=== PATIENT | female | born 2000 | race Caucasian/White ===

== ENCOUNTER 2022-01-22 19:45 | Emergency (ER) | payer OTHER, SELFPAY ==
[2022-01-22 19:48] VITALS: BP 125/93; PULSE 100; RESP 16; TEMP 36.7; O2SAT 100
--- NOTE | 2022-01-22 20:13 | PC.NURSE ---
Pt and family seen exiting ED with steady gait, in no obvious distress.
--- NOTE | 2022-01-22 20:22 | PC.NURSE ---
Does not want to wait to be seen. Not present in dept.
== END 2022-01-22 20:37 | disposition left against medical advice (07) ==
LOC: ANHED 20:36
PROVIDERS: PCP Pediatrics Adolescent Medicine
DX: R51.9 Headache, unspecified (principal)
CPT/HCPCS: 99199

== ENCOUNTER 2022-09-14 11:14 | Emergency (ER) | payer OTHER, SELFPAY ==
[2022-09-14 11:17] VITALS: BP 116/73; PULSE 111; RESP 16; TEMP 37.3; O2SAT 100
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
[2022-09-14] MEDS: ACETAMINOPHEN 325 MG TABLET 650 MG PO (12:05)
[2022-09-14 12:06] LABS: Appearance Urine Clear (Clear); Bilirubin Urine Negative (Negative); Blood Urine Negative (Negative); Color Urine Yellow (Yellow); Glucose Urine UA Negative (Negative); Ketones Urine Negative (Negative); Leukocyte Esterase Ur Negative LEU/UL (Negative); Nitrate Urine Negative (Negative); Protein Urine Negative (Negative); Specific Grav Ur 1.007 (1.001-1.035); Urobilinogen Urine 0.2 mg/dL (<2.0); pH Urine 6.5 (5.0-9.0)
[2022-09-14 12:12] LABS: Pregnancy On Board Control Positive; Urine Pregnancy Test Positive
[2022-09-14 12:16] LABS: Add Urine Microscopic? NO
[2022-09-14 12:38] VITALS: BP 126/84; PULSE 84; RESP 16; O2SAT 99
== END 2022-09-14 12:39 | disposition home or self-care (01) ==
PROVIDERS: Emergency Provider Physician Assistant; PCP Nurse Practitioner Family
DX: O99.891 Other specified diseases and conditions complicating pregnancy (principal); M54.50 Low back pain, unspecified; G89.21 Chronic pain due to trauma; O99.331 Smoking (tobacco) complicating pregnancy, first trimester; F17.290 Nicotine dependence, other tobacco product, uncomplicated; Z3A.01 Less than 8 weeks gestation of pregnancy
CPT/HCPCS: 81003; 81025; 99283; A9270

== ENCOUNTER 2022-12-11 18:55 | Emergency (ER) | payer OTHER, SELFPAY ==
[2022-12-11 18:56] VITALS: RESP 16; O2SAT 98
[2022-12-11 19:40] LABS: Basophils Percent Auto 0.3 % (0.2-1.2); Eosinophils Absolute Auto 0.1 K/mm3 (0-0.3); Eosinophils Percent Auto 1.4 % (0-4.4); Hematocrit 39.5 % (37.0-47.0); Hemoglobin 13.4 g/dL (12.0-15.0); Immature Granulocyte Absolute 0.04 K/mm3 (0.00-0.031); Immature Granulocyte Percent A 0.4 % (0-0.5); Lymphocytes Absolute Auto 2.57 K/mm3 (0.9-3.2); Lymphocytes Percent Auto 26.1 % (18.3-44.2); Mean Corpuscular HGB Conc 33.9 g/dl (32-36); Mean Corpuscular Hemoglobin 31.1 pg (26-34); Mean Corpuscular Volume 91.6 fl (80-100); Mean Platelet Volume 9.4 fl (7.4-10.4); Monocytes Absolute Auto 0.6 K/mm3 (0.1-0.6); Monocytes Percent Auto 6.1 % (2.6-8.5); Neutrophils Absolute Auto 6.5 K/mm3 (1.3-6.7); Neutrophils Percent Auto 65.7 % (45.5-73.1); Platelet Count Result 217 k/mm3 (150-375); Red Blood Count 4.31 M/mm3 (4.2-5.4); Red Cell Distribution Width 12.8 % (11.5-14.5); White Blood Count 9.9 K/mm3 (4.5-10.0)
[2022-12-11 19:45] LABS: Appearance Urine Cloudy (Clear); Bacteria Urine 1+ /hpf; Bilirubin Urine Negative (Negative); Blood Urine Negative (Negative); Color Urine Yellow (Yellow); Glucose Urine UA Negative (Negative); Ketones Urine Negative (Negative); Leukocyte Esterase Ur Negative LEU/UL (Negative); Nitrate Urine Negative (Negative); Non Pathogenic Casts 0-2; Protein Urine Negative (Negative); RBC Urine 0-2 /hpf (0-2); Specific Grav Ur 1.021 (1.001-1.035); Squamous Epithelial Cell Urine Moderate /hpf (Few); WBC Urine 0-5 /hpf
--- NOTE | 2022-12-11 19:45 | ED.GENADULT ---
HPI - General Adult General Chief complaint: Abdominal Pain Stated complaint: RLQ pain, 17 weeks Time Seen by Provider: 12/11/22 19:34 History of Present Illness HPI narrative: Patient a 21-year-old female who presents emergency department with chief complaint of abdominal pain. Patient reports that started having right lower quadrant abdominal pain today patient reports the pain is a sharp and aching pain patient reports no radiation denies vomiting denies diarrhea denies vaginal bleeding or vaginal discharge. Patient reports he is approximately 17 weeks has had 2 outpatient ultrasounds that confirmed intrauterine . Patient denies fever denies changes in appetite Related Data Home Medications Medication Instructions Recorded Confirmed No Home Medications 01/22/22 Allergies Allergy/AdvReac Type Severity Reaction Status Date / Time bee venom protein (honey bee) Allergy Swelling Verified 09/14/22 11:15 [bees] Review of Systems Review of Systems: A 10 system review of systems was completed on the patient and is negative except for what is stated in the HPI. Nursing and ancillary documentation was reviewed. [facility] Family History Family History Father AA (alcohol abuse) Mother Cancer Sibling Asthma Social History Social History Smoking status: Current some day smoker Tobacco type: e-cigarettes/vaping Alcohol intake: never Substance use: never Exam Narrative: GENERAL: Well-appearing, well-nourished, and in no acute distress. HEAD: Normocephalic, atraumatic. EYES: PERRLA and EOMI. ENT: Nares clear, no rhinorrhea or epistaxis. Mucous membranes moist. NECK: Supple. CHEST: Clear to auscultation. No respiratory distress. HEART: Regular rate and rhythm. No murmur heard. Normal peripheral pulses. ABDOMEN: Soft, mild tenderness to palpation in bilateral lower quadrants, no rebound, nondistended, normal active bowel sounds. EXTREMITIES: Normal range of motion. No edema. SKIN: Warm, dry, no rash. NEURO: No focal deficits. Alert and oriented x3. PSYCH: Normal mood and affect. Course Vital Signs Vital signs: Vital Signs Respiratory Rate 16 12/11/22 18:56 Pulse Oximetry 98 12/11/22 18:56 Respiratory Rate 16 12/11/22 18:56 Pulse Oximetry 98 12/11/22 18:56 Medical Decision Making MDM Narrative Medical decision making narrative: Differential diagnosis includes pain related to round ligament pain, appendicitis, diverticulitis colitis Laboratory studies were obtained on the patient which showed a normal white blood cell count normal hemoglobin and normal platelet count electrolytes are within normal limits liver enzymes were also within normal limits lipase was 102 urinalysis showed 1+ bacteria but otherwise 0-5 white blood cells negative for leukocyte esterase and negative for nitrate Patient received a liter of normal saline and 10 mg of Reglan and is feeling much better at this time states that her discomfort has gone away. The patient will be referred to follow-up with her primary care provider and OB the patient was instructed to return to the emergency department if she had worsening in her abdominal pain symptoms. Vital Signs Vital Signs: Vital Signs Respiratory Rate 16 12/11/22 18:56 Pulse Oximetry 98 12/11/22 18:56 Respiratory Rate 16 12/11/22 18:56 Pulse Oximetry 98 12/11/22 18:56 Lab Data 12/11/22 19:32 12/11/22 19:32 Labs: Lab Results 12/11/22 Range/Units 19:32 WBC 9.9 (4.5-10.0) K/mm3 RBC 4.31 (4.2-5.4) M/mm3 Hgb 13.4 (12.0-15.0) g/dL Hct 39.5 (37.0-47.0) % MCV 91.6 (80-100) fl MCH 31.1 (26-34) pg MCHC 33.9 (32-36) g/dl RDW 12.8 (11.5-14.5) % Plt Count 217 (150-375) k/mm3 MPV 9.4 (7.4-10.4
[2022-12-11 19:54] LABS: Add Urine Microscopic? YES
[2022-12-11] MEDS: METOCLOPRAMIDE HCL INJ 10 MG/2 ML VIAL IV PUSH (20:01)
[2022-12-11] MEDS: SODIUM CHLORIDE 0.9% IV 1,000 ML 999 ML IV CONT (20:01)
[2022-12-11 20:03] LABS: Alanine Aminotransferase 18 U/L (6-35); Alkaline Phosphatase 57 U/L (38-126); Anion Gap 5 mmol/L (8-16); Aspartate Amino Transferase 25 U/L (14-36); Bilirubin,Total 0.4 mg/dL (0.2-1.3); Blood Urea Nitrogen 7 mg/dL (7-17); Calcium 8.2 mg/dL (8.4-10.2); Carbon Dioxide 24 mmol/L (22-30); Chloride 106 mmol/L (98-107); Estimated CRCL calculation 134 ml/min; Estimated Glomerular Filt Rate > 60; Glucose 75 mg/dL (65-110); Lipase 102 U/L (23-300); Potassium 3.5 mmol/L (3.4-5.0); Sodium 135 mmol/L (137-145)
== END 2022-12-11 21:10 | disposition home or self-care (01) ==
PROVIDERS: Emergency Medicine; Emergency Provider Emergency Medicine; PCP Nurse Practitioner Family
DX: O26.892 Other specified pregnancy related conditions, second trimester (principal); R10.31 Right lower quadrant pain; O99.332 Smoking (tobacco) complicating pregnancy, second trimester; F17.290 Nicotine dependence, other tobacco product, uncomplicated; Z3A.17 17 weeks gestation of pregnancy
CPT/HCPCS: 36415; 80053; 81001; 83690; 84702; 85025; 85461; 86850; 86900; 86901; 96361; 96374; 99284; J2765; J7030

== ENCOUNTER 2023-05-02 09:14 | Observation (INO) | payer OTHER, SELFPAY ==
[2023-05-02] VITALS (68 sets, daily range): BP systolic 100–113; BP diastolic 66–78; PULSE 45–155; RESP 16–20; TEMP 36.5–37.8; O2SAT 80–100; BMI 27.6
--- NOTE | ~2023-05-02 | US_ITS ---
EXAMINATION: US OB BPP wo non-stress DATE: 05/03/2023 09:34 INDICATION: Abnormal nonstress test. Third trimester. TECHNIQUE: Real-time pelvic ultrasound was performed. COMPARISON: None. FINDINGS: There is a single living fetus in vertex presentation. The placenta is on the left. heart rate is 113 beats per minute (bpm). Biophysical profile performed by the technologist: breathing (30 sec sustained breathing in 30 minutes): 0 out of 2 movement (3 gross body movements in 30 minutes): 2 out of 2 tone (one episode of wrtshyk-[id number]-[id number] limb movement): 2 out of 2 Amniotic fluid pocket (2 cm): 2 out of 2 Total score: 6 out of 8 IMPRESSION: 1. Single living fetus in vertex presentation. 2. Biophysical profile 6 out of 8. Reviewed, dictated and finalized at location E.
[2023-05-02 10:19] LABS: Influenza A QL RT-PCR Negative (Negative); Influenza B QL RT-PCR Negative (Negative); SARS-CoV-2 RNA PCR Negative (Negative)
[2023-05-02] MEDS: SODIUM CHLORIDE 0.9% IV 1,000 ML 999 ML IV CONT (11:37)
[2023-05-02] MEDS: ACETAMINOPHEN 500 MG TABLET 1000 MG PO (11:38)
[2023-05-02 11:50] LABS: Basophils Percent Auto 0.2 % (0.2-1.2); Hematocrit 38.7 % (37.0-47.0); Hemoglobin 12.8 g/dL (12.0-15.0); Immature Granulocyte Absolute 0.12 K/mm3 (0.00-0.031); Immature Granulocyte Percent A 0.7 % (0-0.5); Lymphocytes Absolute Auto 1.04 K/mm3 (0.9-3.2); Lymphocytes Percent Auto 5.9 % (18.3-44.2); Mean Corpuscular HGB Conc 33.1 g/dl (32-36); Mean Corpuscular Hemoglobin 30.3 pg (26-34); Mean Corpuscular Volume 91.7 fl (80-100); Mean Platelet Volume 9.6 fl (7.4-10.4); Monocytes Absolute Auto 1.6 K/mm3 (0.1-0.6); Monocytes Percent Auto 8.8 % (2.6-8.5); Neutrophils Absolute Auto 14.9 K/mm3 (1.3-6.7); Neutrophils Percent Auto 84.4 % (45.5-73.1); Platelet Count Result 154 k/mm3 (150-375); Red Blood Count 4.22 M/mm3 (4.2-5.4); Red Cell Distribution Width 12.9 % (11.5-14.5); White Blood Count 17.6 K/mm3 (4.5-10.0)
[2023-05-02 11:58] LABS: Alanine Aminotransferase 17 U/L (6-35); Albumin Level 3.6 g/dL (3.5-5.1); Alkaline Phosphatase 177 U/L (38-126); Anion Gap 7 mmol/L (8-16); Aspartate Amino Transferase 27 U/L (14-36); Blood Urea Nitrogen 11 mg/dL (7-17); Calcium 9.2 mg/dL (8.4-10.2); Carbon Dioxide 23 mmol/L (22-30); Chloride 100 mmol/L (98-107); Estimated CRCL calculation 87 ml/min; Estimated Glomerular Filt Rate > 60; Glucose 85 mg/dL (65-110); Potassium 3.3 mmol/L (3.4-5.0); Sodium 130 mmol/L (137-145)
[2023-05-02 12:05] LABS: Appearance Urine Turbid (Clear); Bacteria Urine 4+ /hpf; Bilirubin Urine 1+ (Negative); Blood Urine Negative (Negative); Color Urine Dark Yellow (Yellow); Glucose Urine UA Negative (Negative); Ketones Urine Trace mg/dL (Negative); Leukocyte Esterase Ur 2+ LEU/UL (Negative); Need Manual Microscopic Need Manual; Nitrate Urine Negative (Negative); Protein Urine 2+ mg/dL (Negative); Specific Grav Ur 1.023 (1.001-1.035); Squamous Epithelial Cell Urine Many /hpf (Few); WBC Urine >100 /hpf; pH Urine 5.5 (5.0-9.0)
[2023-05-02 12:10] LABS: Add Urine Microscopic? YES
--- NOTE | 2023-05-02 12:45 | ED.GENADULT ---
HPI - General Adult General Chief complaint: Headache <SILVIO Cooper Last Filed: 05/02/23 19:22> Stated complaint: fever/MCALLISTER 4 days- 37 weeks preg <SILVIO Cooper Last Filed: 05/02/23 19:22> Time Seen by Provider: 05/02/23 11:03 <SILVIO Cooper Last Filed: 05/02/23 19:22> Source: patient <SILVIO Cooper Last Filed: 05/02/23 19:22> Mode of arrival: ambulatory <SILVIO Cooper Last Filed: 05/02/23 19:22> Limitations: no limitations <SILVIO Cooper Last Filed: 05/02/23 19:22> History of Present Illness HPI narrative: Patient is a 22 y/o female who presents to the ED with c/o fever and headache. Patient reports over the last 4 days she has had an intermittent fever, up to 103 ?F Tmax. Patient has been occasionally been taking Tylenol for her fever. She also reports having persistent headaches over the last 4 days. She notes a history of migraines prior to , but states this is the first she has experienced throughout her . Patient is and currently 37 weeks gestation. She sees Alee Finney/Dr. Dale. Patient denies any recent cough or cold symptoms. Reports occasional nausea. Denies vomiting. Reports intermittent upper abdominal pain and pelvic pressure. She also reports dysuria. Denies vaginal bleeding. <Nani Palmer PA-C - Last Filed: 05/02/23 19:22> Related Data Home medications: Home Medications Medication Instructions Recorded Confirmed vits no.126-ferrous fum 1 tablet PO DAILY 04/19/23 04/19/23 28 mg iron-folic acid 800 mcg tablet (Classic ) <SILVIO Cooper Last Filed: 05/02/23 19:22> Allergies/adverse reactions: Allergies Allergy/AdvReac Type Severity Reaction Status Date / Time bee venom protein (honey bee) Allergy Swelling Verified 04/19/23 12:17 [bees] <Nani Palmer PA-C - Last Filed: 05/02/23 19:22> Review of Systems Review of Systems: CONSTITUTIONAL: See HPI. ENT: Denies rhinorrhea, congestion. CARDIOVASCULAR: Denies chest pain. RESPIRATORY: Denies cough or dyspnea. GASTROINTESTINAL: See HPI. GENITOURINARY: See HPI. MUSCULOSKELETAL: Denies back pain, joint pain, or myalgia. NEUROLOGIC: See HPI. <Nani Palmer PA-C - Last Filed: 05/02/23 19:22> All systems reviewed & are unremarkable except as noted in HPI and below <Nani Palmer PA-C - Last Filed: 05/02/23 19:22> PMFSH Family History Family History: Family History Father AA (alcohol abuse) Mother Cancer Sibling Asthma Grandparent Dementia <Nani Palmer PA-C - Last Filed: 05/02/23 19:22> Social History Social History: Social History Smoking status: Current some day smoker Tobacco type: e-cigarettes/vaping Alcohol intake: never Substance use: never Spiritual care concerns: No <Nani Palmer PA-C - Last Filed: 05/02/23 19:22> Exam Narrative: GENERAL: Well appearing, well-nourished, non-toxic, in no acute distress. HEAD: Normocephalic, atraumatic. NECK: Supple. No adenopathy, no masses. RESPIRATORY: Airway patent, respirations nonlabored. Clear to auscultation bilaterally, no rales, rhonchi, wheezing. CARDIOVASCULAR: Regular rate and rhythm without murmurs, rubs, or gallops. Radial pulses 2+ and equal bilaterally. ABDOMINAL: Soft, uterus gravid a few fingerbreadths below the xiphoid process, no significant focal tenderness. Normoactive BS. MUSCULOSKELETAL: Moves all extremities. No gross deformities. SKIN: Warm, dry, normal color. No rashes. NEURO: A&O X3. Speech clear. Cranial nerves II-XII grossly intact. Steady gait. No ataxic movements. PSYCHIATRIC: Appropriate mood and affect. Normal interaction. <Nani Palmer PA-C -
--- NOTE | 2023-05-02 14:03 | OBADM ---
This patient, Salima Wayne, admitted to the OB room 116 per wheelchair from ED for observation. Patient/family oriented to hospital policies and general routines including ID bracelet, bed and alarms, visiting hours, pain management, procedures, bathroom and other care routines, personal items, smoking policy, room service/diet, and visiting hours. Patient/Family are encouraged to report perceived risks to care and to ask questions if they do not understand what they are told or what they should do.
--- NOTE | 2023-05-02 14:25 | PM.IMHP ---
H&P: HPI History of Present Illness Date/Time: 05/02/23 14:25 Chief Complaint: pt arrived to ED with complaints of fever, abd/back discomfort. Diagnosed with UTI and given IV rocephin. currently afebrile, NST reactive, álvaro q 2-4 minutes, cervical exam dimple by RN. Review of Systems Review of Systems: All systems reviewed & are unremarkable except as noted in HPI and below PMFSH Family History Family History Father AA (alcohol abuse) Mother Cancer Sibling Asthma Grandparent Dementia Social History Social History Smoking status: Current some day smoker Tobacco type: e-cigarettes/vaping Alcohol intake: never Substance use: never Spiritual care concerns: No Meds Home Medications and Allergies Home Medications Medication Instructions Recorded Confirmed Type vits no.126-ferrous fum 1 tablet PO DAILY 04/19/23 04/19/23 History 28 mg iron-folic acid 800 mcg tablet (Classic ) cephalexin 500 mg capsule 500 mg PO Q6H 7 days #28 caps 05/02/23 Rx Allergies Allergy/AdvReac Type Severity Reaction Status Date / Time bee venom protein (honey bee) Allergy Swelling Verified 04/19/23 12:17 [bees] Vital Signs Vital Signs - 24 hr 05/02/23 09:35 05/02/23 12:44 05/02/23 13:28 Temperature 37.2 C 36.9 C Pulse Rate 108 H 108 H Respiratory Rate 16 20 Blood Pressure 110/78 113/66 Pulse Oximetry 99 98 99 Oxygen Delivery Room Air 05/02/23 13:30 05/02/23 13:31 05/02/23 13:33 Temperature Pulse Rate 100 101 H Respiratory Rate Blood Pressure 112/73 111/68 Pulse Oximetry 100 Oxygen Delivery 05/02/23 13:38 05/02/23 13:43 05/02/23 13:45 Temperature Pulse Rate 95 Respiratory Rate Blood Pressure 108/77 Pulse Oximetry 100 99 Oxygen Delivery 05/02/23 13:48 05/02/23 13:53 05/02/23 13:58 Temperature Pulse Rate Respiratory Rate Blood Pressure Pulse Oximetry 100 100 100 Oxygen Delivery 05/02/23 14:00 05/02/23 14:03 05/02/23 14:08 Temperature Pulse Rate 94 Respiratory Rate Blood Pressure 100/72 Pulse Oximetry 100 100 Oxygen Delivery 05/02/23 14:13 05/02/23 14:15 05/02/23 14:18 Temperature Pulse Rate 93 Respiratory Rate Blood Pressure 109/72 Pulse Oximetry 100 100 Oxygen Delivery 05/02/23 14:23 Temperature Pulse Rate Respiratory Rate Blood Pressure Pulse Oximetry 100 Oxygen Delivery Exam Const: General: cooperative and healthy appearing Chest: Chest palpation & inspection: normal inspection of the chest Resp: Effort & Inspection: normal respiratory effort Auscultation: clear to auscultation bilaterally GI: Other: soft Skin: General skin exam: normal color Extrem: Right lower extremity: normal to inspection Left lower extremity: normal to inspection H&P: Results Labs Labs: Short CBC 05/02/23 Range/Units 11:40 WBC 17.6 H (4.5-10.0) K/mm3 Hgb 12.8 (12.0-15.0) g/dL Hct 38.7 (37.0-47.0) % Plt Count 154 (150-375) k/mm3 BMP 05/02/23 11:40 Sodium 130 L Potassium 3.3 L Chloride 100 Carbon Dioxide 23 BUN 11 Creatinine 0.90 Glucose 85 Calcium 9.2 Liver Function 05/02/23 Range/Units 11:40 Total Bilirubin 1.0 (0.2-1.3) mg/dL AST 27 (14-36) U/L ALT 17 (6-35) U/L Alkaline Phosphatase 177 H (38-126) U/L Albumin 3.6 (3.5-5.1) g/dL Urine 05/02/23 Range/Units 11:40 Urine Color Dark yellow (Yellow) Urine Appearance Turbid H (Clear) Urine pH 5.5 (5.0-9.0) Ur Specific [place] 1.023 (1.001-1.035) Urine Protein 2+ H (Negative) mg/dL Urine Glucose (UA) Negative (Negative) mg/dL Assessment and Plan Assessment and plan (1) UTI (urinary tract infection) during : Qualifiers: Trimester: third trim
[2023-05-02] MEDS: ACETAMINOPHEN/BUTALBITAL/CAFFEINE 325-50-40 MG TABLET (FIORICET) 1 TAB PO ×2 (14:49→20:21)
[2023-05-02] MEDS: DEXTROSE 5%/LACTATED RINGERS 1,000 ML 125 ML IV CONT (14:50)
[2023-05-02] MEDS: CALCIUM CARBONATE (TUMS) 500 MG (200 MG ELEMENTAL) PO (20:21)
[2023-05-02] MEDS: ZOLPIDEM TARTRATE (*CRX) 5 MG TABLET PO (20:37)
[2023-05-02] MEDS: LACTATED RINGERS 1,000 ML 125 ML IV CONT (20:55)
[2023-05-02] MEDS: POTASSIUM CHLORIDE 20 MEQ ER TABLET 40 MEQ PO (21:22)
[2023-05-02] MEDS: ACETAMINOPHEN 500 MG TABLET PO (21:22)
[2023-05-03] VITALS (23 sets, daily range): BP systolic 105–107; BP diastolic 69–74; PULSE 59–102; RESP 15; TEMP 36.4–36.9; O2SAT 98–100
[2023-05-03] MEDS: DEXTROSE 5%/LACTATED RINGERS 1,000 ML 125 ML IV CONT ×2 (03:12→04:58)
[2023-05-03] MEDS: ACETAMINOPHEN 500 MG TABLET PO (03:12)
--- NOTE | 2023-05-03 08:06 | PC.NURSE ---
CNM at bedside evaluating patient. Okay to discontinue continuous IV fluids and see how patient tolerates. Repeat CBC and CMP now. If labs are normal and patient feels well, plan to discharge after next dose of antibiotics.
--- NOTE | 2023-05-03 08:07 | PM.OBPNVD ---
OB - PN: Subj Subjective Date/time seen: 05/03/23 08:07 Interval history: pt admitted for headache, UTI, suspected pyelonephritis, pt feels like fever has broken, feeling better, denies pain or discomfort. denies headache. afebrile VSS, heart rate category 1 OB - PN: Obj Data Labs 05/02/23 11:40 05/02/23 11:40 Labs: Laboratory Results - last 24 hr 05/02/23 05/02/23 09:38 11:40 WBC 17.6 H RBC 4.22 Hgb 12.8 Hct 38.7 MCV 91.7 MCH 30.3 MCHC 33.1 RDW 12.9 Plt Count 154 MPV 9.6 Immature Gran % (Auto) 0.7 H Neut % (Auto) 84.4 H Lymph % (Auto) 5.9 L [place] % (Auto) 8.8 H Eos % (Auto) 0.0 Baso % (Auto) 0.2 Lymph # (Auto) 1.04 [place] # (Auto) 1.6 H Eos # (Auto) 0.0 Baso # (Auto) 0.0 Abs Immat Gran (auto) 0.12 H Absolute Neuts (auto) 14.9 H Absolute Nucleated RBC 0.0 Nucleated RBC % 0.0 Sodium 130 L Potassium 3.3 L Chloride 100 Carbon Dioxide 23 Anion Gap 7 L BUN 11 Creatinine 0.90 Estim Creat Clear Calc 87 Estimated GFR > 60 Glucose 85 Calcium 9.2 Total Bilirubin 1.0 AST 27 ALT 17 Alkaline Phosphatase 177 H Total Protein 7.0 Albumin 3.6 Urine Color Dark yellow Urine Appearance Turbid H Urine pH 5.5 Ur Specific [place] 1.023 Urine Protein 2+ H Urine Glucose (UA) Negative Urine Ketones Trace H Ur Blood (Man) Negative Urine Nitrate Negative Urine Bilirubin 1+ H Urine Urobilinogen 1.0 Add Ur Microanalysis Need manual Leukocyte Esterase Rfl 2+ H Urine RBC 11-20 H Urine WBC >100 H Ur Squamous Epith Cells Many H Urine Bacteria 4+ H Influenza A (RT-PCR) Negative Influenza B (RT-PCR) Negative SARS-CoV-2 RNA (RT-PCR) Negative OB - PN A/P Assessment and Plan (1) Headache: Qualifiers: Headache chronicity pattern: acute headache Headache type: unspecified Intractability: not intractable Qualified Code(s): R51.9 - Headache, unspecified Code(s): R51.9 - Headache, unspecified Status: Acute (2) UTI (urinary tract infection) during : Qualifiers: Trimester: third trimester Qualified Code(s): O23.43 - Unspecified infection of urinary tract in , third trimester Code(s): O23.40 - Unspecified infection of urinary tract in , unspecified trimester Status: Acute (3) 37 weeks gestation of : Code(s): Z3A.37 - 37 weeks gestation of Status: Acute Plan co-managing care with dr. seymour repeat labs, antibiotics, if abebrile and VSS consider d/c home this afternoon Time Spent With Patient Time: Total time spent is greater than 50% in coordination of care (as documented) at patient's floor/unit and/or counseling patient: Review of Systems Review of Systems: All systems reviewed & are unremarkable except as noted in HPI and below Exam Const: General: cooperative, healthy appearing and comfortable Chest: Chest palpation & inspection: normal inspection of the chest Resp: Effort & Inspection: normal respiratory effort Cardio: Rate: regular rate Rhythm: regular rhythm GI: Other: soft. gravid Skin: General skin exam: normal color Neuro: General: patient oriented x3 Extrem: Right lower extremity: normal to inspection Left lower extremity: normal to inspection
--- NOTE | 2023-05-03 08:34 | PC.NURSE ---
CNM on unit. Reviewed tracing. Verbal orders received for BPP, DEVON.
[2023-05-03 08:37] LABS: Hematocrit 35.9 % (37.0-47.0); Mean Corpuscular HGB Conc 33.4 g/dl (32-36); Mean Corpuscular Hemoglobin 30.8 pg (26-34); Mean Corpuscular Volume 92.1 fl (80-100); Mean Platelet Volume 9.8 fl (7.4-10.4); Platelet Count Result 140 k/mm3 (150-375); Red Cell Distribution Width 12.9 % (11.5-14.5); White Blood Count 11.7 K/mm3 (4.5-10.0)
[2023-05-03 08:48] LABS: Alanine Aminotransferase 14 U/L (6-35); Albumin Level 2.8 g/dL (3.5-5.1); Alkaline Phosphatase 139 U/L (38-126); Anion Gap 2 mmol/L (8-16); Aspartate Amino Transferase 19 U/L (14-36); Bilirubin,Total 0.6 mg/dL (0.2-1.3); Blood Urea Nitrogen 8 mg/dL (7-17); Calcium 8.3 mg/dL (8.4-10.2); Carbon Dioxide 22 mmol/L (22-30); Chloride 109 mmol/L (98-107); Estimated CRCL calculation 127 ml/min; Estimated Glomerular Filt Rate > 60; Glucose 82 mg/dL (65-110); Potassium 3.8 mmol/L (3.4-5.0); Sodium 133 mmol/L (137-145)
--- NOTE | 2023-05-03 11:39 | PC.NURSE ---
CNM in department. Reviewed BPP, DEVON results, current tracing, updated lab values. Patient denies any pain currently and would like to be discharged when possible. Per CNM, patient may discharge after next dose of Rocephin.
--- NOTE | 2023-05-04 19:06 | P.PNOB_ITS ---
OB - Triage/Final Diagnosis Visit Information Date of evaluation: 05/03/23 Reason for evaluation: other (abdominal pain) Comments/Additional reasons for admission: I have assessed the risk for this patient, Salima Wayne, and determined that she would benefit from observation care. Evaluation Laboratory results: Laboratory Tests 05/02/23 05/02/23 05/03/23 09:38 11:40 08:28 WBC 17.6 H 11.7 H RBC 4.22 3.90 L Hgb 12.8 12.0 Hct 38.7 35.9 L MCV 91.7 92.1 MCH 30.3 30.8 MCHC 33.1 33.4 RDW 12.9 12.9 Plt Count 154 140 L MPV 9.6 9.8 Immature Gran % (Auto) 0.7 H Neut % (Auto) 84.4 H Lymph % (Auto) 5.9 L [place] % (Auto) 8.8 H Eos % (Auto) 0.0 Baso % (Auto) 0.2 Lymph # (Auto) 1.04 [place] # (Auto) 1.6 H Eos # (Auto) 0.0 Baso # (Auto) 0.0 Abs Immat Gran (auto) 0.12 H Absolute Neuts (auto) 14.9 H Absolute Nucleated RBC 0.0 Nucleated RBC % 0.0 Sodium 130 L 133 L Potassium 3.3 L 3.8 Chloride 100 109 H Carbon Dioxide 23 22 Anion Gap 7 L 2 L BUN 11 8 Creatinine 0.90 0.60 L Estim Creat Clear Calc 87 127 Estimated GFR > 60 > 60 Glucose 85 82 Calcium 9.2 8.3 L Total Bilirubin 1.0 0.6 AST 27 19 ALT 17 14 Alkaline Phosphatase 177 H 139 H Total Protein 7.0 6.0 L Albumin 3.6 2.8 L Urine Color Dark yellow Urine Appearance Turbid H Urine pH 5.5 Ur Specific [place] 1.023 Urine Protein 2+ H Urine Glucose (UA) Negative Urine Ketones Trace H Ur Blood (Man) Negative Urine Nitrate Negative Urine Bilirubin 1+ H Urine Urobilinogen 1.0 Add Ur Microanalysis Need manual Leukocyte Esterase Rfl 2+ H Urine RBC 11-20 H Urine WBC >100 H Ur Squamous Epith Cells Many H Urine Bacteria 4+ H Influenza A (RT-PCR) Negative Influenza B (RT-PCR) Negative SARS-CoV-2 RNA (RT-PCR) Negative
== END 2023-05-03 13:08 | disposition home or self-care (01) ==
LOC: ANHED 12:54 → ANHOBPP 13:16
PROVIDERS: Emergency Medicine; Admitting Provider Obstetrics & Gynecology; Emergency Provider Physician Assistant; PCP Nurse Practitioner Family; Referring Provider Advanced Practice Midwife; Visit Provider Obstetrics & Gynecology
DX: O23.43 Unspecified infection of urinary tract in pregnancy, third trimester (principal); B95.1 Streptococcus, group B, as the cause of diseases classified elsewhere; O99.353 Diseases of the nervous system complicating pregnancy, third trimester; Z20.822 Contact with and (suspected) exposure to COVID-19; R51.9 Headache, unspecified; Z3A.37 37 weeks gestation of pregnancy
CPT/HCPCS: 36415; 59025; 76819; 80053; 81001; 84112; 85025; 85027; 87086; 87088; 87147; 87636; 96361; 96365; 96374; 99285; A9270; G0378; G0379; J0696; J7030; J7120; J7121

== ENCOUNTER 2023-05-16 15:54 | Inpatient (IN) | payer OTHER, SELFPAY ==
[2023-05-16] VITALS (28 sets, daily range): BP systolic 90–129; BP diastolic 43–90; PULSE 67–95; RESP 16; TEMP 36.6; O2SAT 97–100; BMI 27.1
--- NOTE | 2023-05-16 16:48 | ADMGEN ---
This patient, Salima Wayne, was admitted to Labor/Delivery/Recovery 109-00. Patient/family oriented to hospital policies and general routines including ID bracelet, bed and alarms, visiting hours, pain management, procedures, bathroom and other care routines, personal items, smoking policy, room service/diet, and visiting hours. Information on how to activate the Rapid Response Team has been discussed. Patient/Family are encouraged to report perceived risks to care and to ask questions if they do not understand what they are told or what they should do.
--- NOTE | 2023-05-16 17:00 | PC.NURSE ---
Upon reviewing patient's , RN observed that patient has HSV but unspecified if HSV-1 or HSV-2. RN asked patient's mother to leave the room and asked patient for her HSV history. 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 Patient is not on any suppressant medications. Patient also states that she has itching around her bikini line that is new. Bright light exam performed on patient and patient was noted to have 2 red irritated bumps in her genital region that were not painful when touched; patient had noted that she had shaved several days prior and it could be razor bumps. Patient educated on risks of unprotected intercourse, especially with a known STI. Patient verbalizes understanding. Called Yashira Finney CNM at [phone] and reported findings. No new orders received from provider.
--- NOTE | 2023-05-16 17:14 | P.PNAN_ITS ---
Anes - Eval Pre Procedure Procedure: Labor epidural Date/Time: 05/16/23 17:14 Surgeon: Chito Preop Diagnosis: Abdominal pain with contractions Pre Op Diagnosis: Induction of Labor Patient Data Age: 22 Gender: F Height: 1.65 m Weight: 74 kg Last Vital Signs Pulse 76 05/16/23 17:00 BP 109/73 05/16/23 17:00 Pulse Ox 100 05/16/23 17:13 O2 Del Method Room Air 05/16/23 16:40 Allergies Allergy/AdvReac Type Severity Reaction Status Date / Time bee venom protein (honey bee) Allergy Swelling Verified 05/16/23 16:55 [bees] Home Medications Medication Instructions Recorded Confirmed Type vits no.126-ferrous fum 1 tablet PO DAILY 04/19/23 05/16/23 History 28 mg iron-folic acid 800 mcg tablet (Classic ) Laboratory Tests 05/16/23 16:37 WBC Pending RBC Pending Hgb Pending Hct Pending MCV Pending MCH Pending MCHC Pending RDW Pending Plt Count Pending MPV Pending Immature Gran % (Auto) Pending Neut % (Auto) Pending Lymph % (Auto) Pending [place] % (Auto) Pending Eos % (Auto) Pending Baso % (Auto) Pending Lymph # (Auto) Pending [place] # (Auto) Pending Eos # (Auto) Pending Baso # (Auto) Pending Abs Immat Gran (auto) Pending Absolute Neuts (auto) Pending Absolute Nucleated RBC Pending Nucleated RBC % Pending RPR Pending : gestational age HCG: positive Patient hx anesthesia problems: none Family hx anesthesia problems: none Results Review: All pre-operative results and documents have been reviewed as part of the pre- operative evaluation. [facility] Past Medical History Medical History Anxiety and depression Eczema Migraines and not yet delivered Smoker Family History Family History Father AA (alcohol abuse) Mother Cancer Sibling Asthma Grandparent Dementia Social History Social History Smoking packs per day: 0.5 Smoking cigarettes per day: 10.0 Years smoked: 6 Smoking pack-years: 3.00 Smoking status: Former smoker Tobacco type: cigarettes Second hand tobacco smoke exposure: No Alcohol intake: never Substance use: never Lack of Transportation: No Lack of Food: Never True Current Housing: I Have Housing Concerned About Future Housing: No Difficulty Paying Gas/Electric Bills: No Difficulty Paying for Meds: No Currently Unemployed: No Education: High School Diploma/GED Difficulty w/ Childcare or Family Care: No Spiritual care concerns: No Exam Day of Procedure 05/16/23 17:14
[2023-05-16] MEDS: DINOPROSTONE 10 MG VAG INSERT VAGINAL (17:21)
[2023-05-16 17:37] LABS: Basophils Percent Auto 0.3 % (0.2-1.2); Eosinophils Absolute Auto 0.1 K/mm3 (0-0.3); Eosinophils Percent Auto 0.6 % (0-4.4); Hematocrit 36.2 % (37.0-47.0); Hemoglobin 11.8 g/dL (12.0-15.0); Immature Granulocyte Absolute 0.11 K/mm3 (0.00-0.031); Immature Granulocyte Percent A 0.8 % (0-0.5); Lymphocytes Percent Auto 19.1 % (18.3-44.2); Mean Corpuscular HGB Conc 32.6 g/dl (32-36); Mean Corpuscular Hemoglobin 30.1 pg (26-34); Mean Corpuscular Volume 92.3 fl (80-100); Mean Platelet Volume 9.9 fl (7.4-10.4); Monocytes Absolute Auto 0.6 K/mm3 (0.1-0.6); Monocytes Percent Auto 4.5 % (2.6-8.5); Neutrophils Absolute Auto 10.2 K/mm3 (1.3-6.7); Neutrophils Percent Auto 74.7 % (45.5-73.1); Platelet Count Result 249 k/mm3 (150-375); Red Blood Count 3.92 M/mm3 (4.2-5.4); Red Cell Distribution Width 13.1 % (11.5-14.5); White Blood Count 13.6 K/mm3 (4.5-10.0)
[2023-05-17] VITALS (183 sets, daily range): BP systolic 85–136; BP diastolic 44–89; PULSE 30–151; RESP 16–18; TEMP 36.6–37.1; O2SAT 85–100
[2023-05-17] MEDS: OXYTOCIN 30 UNITS/NS 500 ML 30 UNITS/500 ML BAG 6 UNITS IV CONT (06:38)
[2023-05-17] MEDS: AMPICILLIN 2 GM/NS 100 ML 2 GM/100 ML BAG IVPB (06:39)
[2023-05-17] MEDS: LACTATED RINGERS 1,000 ML 125 ML IV CONT ×3 (06:39→16:18)
--- NOTE | 2023-05-17 07:17 | WPDOBADMIT ---
Obstetrics - Admit Note Admission Note: record reviewed. No pertinent additions to the history and/or any subsequent changes in the physical findings that are not consistent with the expected course of the were found. Additions to the history and/or subsequent changes in the physical findings follow.arrived for IOL, SVE -/-2 will plan epidural then arom
--- NOTE | 2023-05-17 10:55 | PM.OBPNLAB ---
Pain Control Date/time seen: 05/17/23 10:55 Comments: SVE 1-2/70/-2 AROM moderate amount of clear odorless fluid, IUPC placed
[2023-05-17] MEDS: AMPICILLIN 1 GM/NS 50 ML 1 GM/50 ML BAG IVPB ×2 (11:19→15:34)
[2023-05-17 14:39] LABS: Rapid Plasma Reagin Non-Reactive (NonReactive)
--- NOTE | 2023-05-17 18:17 | PM.OBPRVD ---
OB - Vaginal Delivery Note Procedure Delivery date: 05/17/23 Induction method: AROM, Per Pitocin Protocol and Per Cervidil Protocol Delivery monitor: External FHT and Internal FHT Route of delivery: Laceration Description: Labial (left) Delivery repair: vicryl Specimen: No Quantitative Blood Loss (ml): 150 Anesthesia type: Epidural Disposition: Floor [place] Baby Date of : 05/17/23 Time of : 18:02 Weeks of gestation at delivery: 39 Infant gender: Male presentation: vertex position: Left Occiput Anterior Placenta delivery description: Spontaneous Cord Vessel Description: 3 Vessels and Delayed Cord Clamping score one minute: 9 score five minutes: 9 Narrative: mother and baby skin to skin and stable condition
[2023-05-17] MEDS: DOCUSATE SODIUM 100 MG CAPSULE PO (19:36)
[2023-05-17] MEDS: IBUPROFEN 600 MG TABLET PO (19:37)
[2023-05-17] MEDS: ACETAMINOPHEN 325 MG TABLET 650 MG PO (19:37)
[2023-05-17] MEDS: WITCH HAZEL 40 PADS 1 PAD TOPICAL (20:50)
[2023-05-17] MEDS: BENZOCAINE 20% AER SPR (*SP) 56 GM CAN 1 SPRAY TOPICAL (20:50)
--- NOTE | 2023-05-17 21:10 | OBPPTRN ---
Patient transferred to post room #278 via wheelchair. Support person present. Oriented to unit, room, information board, rooming in, admission packet and security measures. Patient verbalizes understanding. with patient.
[2023-05-18 04:15] VITALS: BP 120/77; PULSE 61; RESP 18; TEMP 37; O2SAT 100
[2023-05-18 05:45] LABS: Hematocrit 33.7 % (37.0-47.0)
[2023-05-18] MEDS: IBUPROFEN 600 MG TABLET PO ×2 (08:00→15:10)
[2023-05-18] MEDS: MULTIVIT/MIN/PREN/FOL AC/IRON TABLET 1 TAB PO (08:00)
[2023-05-18] MEDS: DOCUSATE SODIUM 100 MG CAPSULE PO (08:00)
[2023-05-18] MEDS: BENZOCAINE 20% AER SPR (*SP) 56 GM CAN 1 SPRAY TOPICAL (08:00)
[2023-05-18] MEDS: LANOLIN (LANSINOH) 7.5 GM CREAM 1 APPLIC TOPICAL (08:00)
[2023-05-18] MEDS: WITCH HAZEL 40 PADS 1 PAD TOPICAL ×2 (08:00→19:14)
--- NOTE | 2023-05-18 08:14 | PM.OBPNVD ---
OB - PN: Subj Subjective Date/time seen: 05/18/23 08:14 Patient comments: no complaints, pain well controlled, incisional pain, tolerating diet and flatus present OB - PN: Obj Data Labs 05/18/23 04:18 Labs: Laboratory Results - last 24 hr 05/16/23 05/18/23 17:30 04:18 Hgb 11.0 L Hct 33.7 L RPR Non-reactive OB - PN A/P Plan day: 1 Plan: routine care Comments: No problems, routine care Time Spent With Patient Time: Total time spent is greater than 50% in coordination of care (as documented) at patient's floor/unit and/or counseling patient: Exam Const: General: comfortable, no acute distress and alert Resp: Effort & Inspection: normal respiratory effort Auscultation: no crackles, no rales and no rhonchi Cardio: Rate: regular rate Heart sounds: no click, no murmurs and no rubs GI: Inspection: non-distended GI Palp: No Tenderness to palpation present (GI) Auscultation: normal bowel sounds Other: Incision - CDI Extrem: General: normal to inspection, no pedal edema and no calf tenderness
[2023-05-18 09:15] VITALS: BP 117/81; PULSE 70; RESP 16; TEMP 36.8; O2SAT 99
--- NOTE | 2023-05-18 10:36 | WPDANLDPN2 ---
Anes-Prog Note L&D Date/Time: 05/18/23 10:36 Comfortable throughout: labor and delivery Neuraxial method: epidural Epidural/Spinal procedure site: clean & non-tender Neuro status: Neuro function grossly intact. Cardiovascular status: normal Respiratory status: normal Airway patency: baseline Mental status: baseline Post-Op hydration status: normal Vital Signs: Last Vital Signs Temp 36.8 C 05/18/23 09:15 Pulse 70 05/18/23 09:15 Resp 16 05/18/23 09:15 BP 117/81 05/18/23 09:15 Pulse Ox 99 05/18/23 09:15 O2 Del Method Room Air 05/17/23 23:30 Pain score (VAS): 07/12 I/O: Intake & Output 05/17/23 05/18/23 05/18/23 23:59 07:59 15:59 Intake Total 1000 Output Total 380 Balance 620 Post-procedural complaints: none Patient feedback: Patient satisfied with anesthetic care.
--- NOTE | 2023-05-18 11:26 | PC.NURSE ---
[id number] Introductions were made, then consulted with patient to assess needs related to . Mother led the conversation with her?plans to feed?her infant, the?experience so far and infant is in the nursery. Resources provided for inpatient and outpatient services with the feeding sheet, mom/baby guide and name written on the white board. Mother voiced understanding of information and will call if there is a request for assistance.
[2023-05-18 12:31] VITALS: BP 111/70; PULSE 70; RESP 16; TEMP 37; O2SAT 99
--- NOTE | 2023-05-18 13:40 | PC.NURSE ---
[id number] Consulted with patient to assess needs related to after being requested. Mother led conversation with her experience with feeding baby so far. Mother works well with her with encouragement. Reviewed working with , supporting breast and how to protect the nipples with an optimal deep latch, good positioning, and good hand washing. Encouraged understanding the benefits of skin to skin, responding to feeding cues, frequencies of feeding 8-12 times in 24 hours (approximately 2-3 hours), duration of feedings, milk production, intake/output feeding sheet and signs of adequate intake encouraging swallowing at the breast. Reviewed positioning and alignment, supporting breast, off-centered (asymmetrical latch) and leading with the chin with big, open, wide gape. Infant latched optimally to the left, then right breast in cradle. Infant swallows at times. Mother is aware that non-nutritively sucks at times and that is okay as long as there's no pain with optimal latching, no misshaping of the nipple and has sessions with swallowing. Mother was encouraged to latch with football position and latched deeply with swallowing. Education given to mother of how to visualize suck/swallow ratios, listen for drinking at the breast and visualization of 's relaxed arms and hands. Mother states before feeding infants arms/hands were tight. Infant was able to maintain latch without discomfort to mother. Nipple care reviewed with optimal latch, good positioning and using clean hands when feeding her infant and touching her breast. Mother voiced understanding of the education shared, to call for assistance if the infant does not latch or if there is discomfort with .
[2023-05-18 17:00] VITALS: BP 130/80; PULSE 60; PULSE 70; RESP 14; RESP 16; TEMP 36.6; O2SAT 100; O2SAT 99
[2023-05-18] MEDS: ACETAMINOPHEN 325 MG TABLET 650 MG PO (19:14)
[2023-05-18 19:15] VITALS: BP 109/74; PULSE 66; RESP 18; TEMP 36.5; O2SAT 98
[2023-05-18] MEDS: TETANUS,DIPHTHERIA,AC PERTUSSIS ADULT (0.5 ML) BOOSTRIX (19:15)
[2023-05-19 07:40] VITALS: BP 118/84; PULSE 66; RESP 16; TEMP 36.6; O2SAT 100
[2023-05-19] MEDS: DOCUSATE SODIUM 100 MG CAPSULE PO (08:09)
[2023-05-19] MEDS: MULTIVIT/MIN/PREN/FOL AC/IRON TABLET 1 TAB PO (08:09)
[2023-05-19] MEDS: IBUPROFEN 600 MG TABLET PO (08:10)
--- NOTE | 2023-05-19 08:31 | PM.OBPNVD ---
OB - PN: Subj Subjective Date/time seen: 05/19/23 08:31 Interval history: Doing well PPD#2 Voiding spontaneously Normal diet , working on latch OB - PN: Obj Data Labs 05/18/23 04:18 OB - PN A/P Plan day: 2 Plan: routine care, discharge home and follow up 6 weeks Time Spent With Patient Time: Total time spent is greater than 50% in coordination of care (as documented) at patient's floor/unit and/or counseling patient: Review of Systems Review of Systems: All systems reviewed & are unremarkable except as noted in HPI and below Exam Const: General: comfortable, no acute distress and alert Resp: Effort & Inspection: normal respiratory effort Auscultation: no crackles, no rales and no rhonchi Cardio: Rate: regular rate Heart sounds: no click, no murmurs and no rubs GI: Inspection: non-distended GI Palp: No Tenderness to palpation present (GI) Auscultation: normal bowel sounds Other: Incision - CDI Extrem: General: normal to inspection, no pedal edema and no calf tenderness
--- NOTE | 2023-05-19 08:33 | PM.OBDSVD ---
DS: Admitting Diagnosis Discharge Date 05/19/23 Admitting Diagnosis induction of labor DS: Discharge Diagnosis Discharge Diagnosis (1) (spontaneous vaginal delivery): Code(s): O80 - Encounter for full-term uncomplicated delivery Status: Acute OB - DS: Summary OB Procedures : None OB Procedures Intrapartum: Spontaneous Vag Delivery OB Procedures: : None Peripartum Data Laceration Description: Labial (left) Time Spent with Patient Time attestation: Total time spent providing and/or coordinating discharge services: Discharge Plan Discharge Attending physician on discharge: Rip Moore Discharging Clinician: Rip Moore Patient Disposition: Home, Self-Care Activity: may shower and pelvic rest Diet: as tolerated Patient Instructions: Antibiotic Form Stand Alone Forms: General Discharge Information Follow-up/Referrals: Bassam Dale MD [Physician] - 4 Weeks Discharge Medications: Continued Classic 28 mg iron- 800 mcg Tablet 1 tablet PO DAILY Date of admission: 05/16/23 15:54 Primary Care Provider: ChanelDeysi Admitting Provider: Bassam Dale Attending physician on admission: Bassam Dale Condition: Stable
--- NOTE | 2023-05-19 13:39 | PC.NURSE ---
[id number] Consulted with patient to assess needs related to . 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 Mother works well with her infant with encouragement and is resourceful with looking up information with good quality books. Reviewed working with , supporting breast and how to protect the nipples with an optimal deep latch, good positioning, and good hand washing. Infant latches optimally, sucks a few suckles, then holds the nipple in his mouth. Encouraged understanding the benefits of skin to skin, responding to feeding cues, frequencies of feeding 8-12 times in 24 hours (approximately 2-3 hours), duration of feedings, milk production, intake/output feeding sheet and signs of adequate intake encouraging swallowing at the breast. Reviewed positioning and alignment, supporting breast, off-centered (asymmetrical latch) and leading with the chin with big, open, wide gape. is syringe fed 1ml that mother had hand expressed earlier. is reluctant to breastfeed at this time. Visitors are here to see the and mother states pumping is painful. Mother allows the visitor to hold the while we assess the pump flange fit. Mother has been using her 28mm flanges with the Zomee pump. The flange is too big so, RN gathered a pump kit and mother was able to express milk with 24mm flange using the manual pump provided. Mother denies pain. has a copious stool diaper and circumcision care was demonstrated. Nipple care reviewed with optimal latch, good positioning and using clean hands when feeding her infant and touching her breast. Mother chose to syringe feed her infant at this time instead of . RN syringe fed infant 6mls and encouraged mother to offer the other breast. Mother is going to work on the certificate at this time. Infant has had appropriate feedings in the last 24 hours meets the outcomes for weight, output and jaundice at this time. Mother states she is confident to continue effectively her at home, when to call for assistance and denies any additional assistance or education at this time. Reinforced understanding of milk production, transition of milk, signs of adequate intake, transition of stool, prevention/relief of engorgement, plugged ducts, mastitis, responsive watching for feeding cues, the different methods of stimulating to breastfeed 2-3 hours after the start of the last feeding, community resources, medication information reviewed per [employer] and when to call a provider using the resource of the mom and baby guide/[facility] website. Mother voiced understanding of the education shared. Reported to the primary RN.
[2023-05-20 08:25] VITALS: BP 124/80; PULSE 86; RESP 18; TEMP 36.8; O2SAT 100
== END 2023-05-19 18:35 | disposition home or self-care (01) | DRG 560 ==
LOC: ANHOB2 05-19 09:54 → ANHLDR 05-22 09:31 → ANHOB2 05-22 09:31
PROVIDERS: Advanced Practice Midwife; Admitting Provider Obstetrics & Gynecology; PCP Nurse Practitioner Family; Visit Provider Obstetrics & Gynecology
DX: O99.824 Streptococcus B carrier state complicating childbirth (principal); Z37.0 Single live birth; O77.0 Labor and delivery complicated by meconium in amniotic fluid; O70.0 First degree perineal laceration during delivery; Z3A.39 39 weeks gestation of pregnancy; Z23 Encounter for immunization
CPT/HCPCS: 36415; 85014; 85018; 85025; 86592; 86850; 86900; 86901; 90471; 90686; 90715; A9270; G0008; J0290; J2590; J2795; J7120